=== PATIENT | female | born 1995 | race Caucasian/White ===

== ENCOUNTER 2025-04-07 00:14 | Emergency (ER) | payer SELFPAY ==
[~2025-04-07] VITALS: Ht 157.5 cm; Wt 122.0 kg
[2025-04-07 02:43] VITALS: TEMP 98.4
[2025-04-07 06:12] VITALS: BP 133/67
[2025-04-07 06:29] VITALS: O2SAT 99
== END 2025-04-07 06:37 | disposition home or self-care (01) ==
LOC: M ED 00:14
DX: S63.615A Unspecified sprain of left ring finger, initial encounter (principal); S63.613A Unspecified sprain of left middle finger, initial encounter; X58.XXXA Exposure to other specified factors, initial encounter; Y92.9 Unspecified place or not applicable; Y93.K1 Activity, walking an animal; Y99.9 Unspecified external cause status